=== PATIENT | male | born 1980 | race Caucasian/White ===

== ENCOUNTER 2017-01-05 08:50 | Day surgery (SDC) | payer OTHER ==
[~2017-01-05] VITALS: Ht 152.4 cm; Wt 66.0 kg
[~2017-01-05 08:50] MED LIST: 0.9% Sodium Chloride 1,000 ML IV SCH; ALBU8.5H2 INHALATION; ASPI325T32 PO; DICY10CA56 PO; FLUT9.9S NS; GUAN2TAB17 PO; IBUP400T22 PO; Lactated Ringer's 1,000 ML IV ONE; OMEP20CA11 PO; Sodium Chloride LOK Flush 10 mL Syringe IV PRN; VENL75CA95 PO; fentaNYL-PF 50 mCg/mL 2 mL Inj IVPUSH PRN
[2017-01-05] MEDS ORDERED: Lidocaine PF 1% 30 mL Inj ONE (08:51)
[2017-01-05] MEDS ORDERED: Propofol 10,000 mCg/mL 20 mL Inj ONE (08:51)
[2017-01-05 09:23] VITALS: BP 122/88; PULSE 58; RESP 16; O2SAT 97
[2017-01-05] MEDS ORDERED: Lactated Ringer's 1,000 ML IV SCH (09:43)
[2017-01-05] MEDS ORDERED: Ondansetron 2 mg/mL 2 mL Inj IVPUSH PRN (09:45)
[2017-01-05] MEDS ORDERED: Albuterol 2.5 mg/3 mL Inhalation Solution NEB PRN (09:45)
[2017-01-05] MEDS ORDERED: Atropine 0.4 mg/mL Inj IVPUSH PRN (09:45)
[2017-01-05] MEDS ORDERED: MetoCLOpramide 5 mg/mL 2 mL Inj IVPUSH PRN (09:45)
--- NOTE | 2017-01-05 09:56 | PCM.HPANE ---
Patient Data Date of Service: Jan 05, 2017 Surgeon Admitting Provider: Attending Provider:Ethan Cole MD Primary Care Physician:Alfredito Richardson MD Other Provider:Kin Bejarano Anesthesia Reason for Visit Rectal Bleed, Periumbilical Abd Pain Ht/WT & BMI Height (Feet): 5 Height (Inches): 0 Weight (Kilograms): 66 Body Mass Index 28.00 Allergies Coded Allergies: No Known Allergies (Verified Allergy, Unknown, 01/05/17) Past Anesthesia History Anesthesia History: Denies:: Anesthesia Reactions, Fam Anesthesia Reaction, Fam Malignant Hypertherm, Malignant Hyperthermia Diabetes History Hx Diabetes?: No MRSA MRSA: No Medications Hypertension Medication: No Home Meds Incl Beta Allegra: No Reported Medications Venlafaxine ER 75 Mg Cap.er.24h75 Mg PO DAILY Ref 0 01/04/17 Ibuprofen 400 Mg Njvopb546 Mg PO TID PRN For Pain Ref 0 01/04/17 Guanfacine ER 2 Mg Tab.er.24h2 Mg PO DAILY 01/04/17 Aspirin 325 Mg Rnftdk471 Mg PO DAILY #1 BOTTLE 01/04/17 Albuterol HFA (Proair HFA)8.5 Gm Hfa.aer.ad2 Puffs INHALATION Q4H #1 INHALER 01/04/17 Discontinued Reported Medications Omeprazole 20 Mg Capsule.dr20 Mg PO DAILY Ref 0 01/04/17 Fluticasone Propionate (Flonase Allergy Relief)50 Mcg/Actuation [place].susp1 [place] NS 01/04/17 Dicyclomine (Bentyl)10 Mg Ywmwoao08 Mg PO QID 01/04/17 History Hx of Heart Problems?: No Cardiovascular History: Denies:: AICD Pacemaker Valvular Heart Disease Hx of Respiratory Problem?: Yes Respiratory History: Positive for:: Asthma Hx Neurologic Problems?: No Neurological History: Denies:: CVA Hx of GI Problems?: Yes Gastrointestinal History: Positive for:: Gastroesphageal Reflux Rectal Bleeding Hx of Problems?: No HX of Peritoneal Dialysis: No Hx Musculoskeletal Problems?: No Psycho Social History: Positive for:: Anxiety Hx Depression Hx Surgeries?: Yes (ARM SURGERY) Hx Any Other Health Problems?: Yes Hx Diabetes: No Hx Alcohol Use: No Stop/Bang Treated for Sleep Apnea?: No Do You Have a CPAP Machine?: No S-Snoring: Do You Snore Loudly: No T-Tired: feel tired, fatigued: No O-Obsered: Observed not breath: No P-Blood Pressure: treated: No B- Body Mass Index > 35 kg/m2: No A- Age over 50: No N- Neck Large Circumference: No G- Gender Male: Yes JAMEY Total Score: 1 JAMEY Risk Assessment: Low Risk, <3 Yes Risk Assessment Category Category 1A: Patient has history of documented sleep apnea, and HAS NOT received any narcotic, sedative or anesthesia administration during this stay. Category 1B: Patient has history of documented sleep apnea, and HAS received any narcotic , sedative or anesthesia administration during this stay Category 2: Patient has SUSPECTED Obstructive Sleep Apnea, and HAS received any narcotic , sedative or anesthesia administration during this stay. Category 3: Patient has SUSPECTED Obstructive Sleep Apnea and HAS NOT received narcotic, sedative or anesthesia administration during this stay. Category 4: Outpatient in Procedural Areas with known sleep apnea or who screen positive for High Risk via the STOP/BANG questionnaire. Exam Exam Vital Signs Vital Signs Date Time Temp Pulse Resp B/P Pulse Ox O2 Delivery O2 Flow Rate FiO2 01/05/17 09:23 36.6 58 16 122/88 97 Room Air General Appearance: Alert, Oriented X3 HEENT/AIRWAY: MP 2 Lungs: Clear to Auscultation, Normal Air Movement Heart: Regular Rate/Rhythm, Normal S1 Meds/Labs/Diagnostics Admission Meds Current Medications Lactated Ringer's (Lr) 1,000 ml @ 10 mls/hr Q24H ONCE IV Last administered on 01/05/17t 09:36; Start 01/05/17 at 06:00; Stop 01/06/17 at 05:59 Plan Impression Patient chart reviewed, patient interviewed and anesthestic plan with risks, benefits, and alternatives discussed, and informed consent obtained. NPO Status: > 2 hours ASA Physical Status: ASA2 Plus Emergency Anesthetic Plan: MAC Bene/Risks/Altern/Consents: Yes HP Complete Prior to Induction: Yes Daniele Ryan MD Jan 05, 2017 09:43
[2017-01-05 10:20] VITALS: BP 112/82; PULSE 78; RESP 14; O2SAT 97
[2017-01-05 10:34] VITALS: BP 115/69; PULSE 76; RESP 14; O2SAT 97
--- NOTE | 2017-01-05 10:34 | PCM.ANEP1 ---
Post Anesthesia Phase 1 PACU Phase 1 Assessment Date of Service: Jan 05, 2017 Vital Signs Vital Signs Date Time Temp Pulse Resp B/P Pulse Ox O2 Delivery O2 Flow Rate FiO2 01/05/17 10:20 78 14 112/82 97 Room Air 01/05/17 09:23 36.6 58 16 122/88 97 Room Air Anesthetic Administered: MAC Level of Alertness: Awake, talking CANO's with Equal Strength: Yes Pain: No Nausea or Vomiting: No Oxygen Delivery: Room Air Lungs: Normal Air Movement Daniele Ryan MD Jan 05, 2017 10:34
--- NOTE | 2017-01-05 10:35 | PCM.ANEP2 ---
Post Anesthesia Evaluation ASA/CMS Post Anesthesia Date of Service: Jan 05, 2017 VS in Patient's Normal Range?: Yes Resp Stable; Airway Patent?: Yes CV Function & Hydration Stable: Yes Mental Status Recovered?: Yes Pain control Satisfactory?: Yes N/V Control Satisfactory?: Yes Daniele Ryan MD Jan 05, 2017 10:35
[2017-01-05 10:38] VITALS: BP 124/80; PULSE 78; RESP 14; O2SAT 97
--- NOTE | 2017-01-05 14:19 | ENDO ---
[address] [address] ENDOSCOPY PROCEDURE PATIENT: MARY MALCOLM : 1980 MR#: [id number] ADMIT: 01/05/2017 JOB ID: [id number] DATE: 01/05/2017 TYPE OF OPERATION: 1. Esophagogastroduodenoscopy with biopsy. 2. Colonoscopy with biopsy. PREOPERATIVE DIAGNOSIS(ES): Abdominal pain, gastroesophageal reflux disease and rectal bleeding. POSTOPERATIVE DIAGNOSIS(ES): 1. Mild nonerosive gastritis. 2. Small internal hemorrhoids. 3. One single diverticulum in the sigmoid colon. 4. A 2 mm polyp seen in the sigmoid colon removed by cold biopsy forceps. ANESTHESIA: Monitored anesthesia care. COMPLICATIONS: None. BLOOD LOSS: Minimal. DESCRIPTION OF PROCEDURE: After risks and benefits were explained to the patient, informed consent was obtained. After anesthesia administered, upper endoscope was then inserted into the mouth and intubated through esophagus, stomach, second portion of duodenum. Mucosa carefully examined. After the procedure was done, the scope was withdrawn and procedure terminated. Colonoscope was then inserted through the rectum to the cecum. Mucosa carefully examined. Prep of the patient was excellent. After the procedure was done, the scope was withdrawn and the procedure terminated. FINDINGS: Upon inspection of the esophagus, the esophagus was normal without masses, ulcers, or lesions. Z-line located 40 cm from incisors. Upon entering the stomach, there was mild nonerosive gastritis seen. Retroflexion was normal. No masses, ulcers, lesions were seen. Retroflexion was normal. Duodenal bulb, first and second portion normal. Biopsies of the antrum and body of the stomach and distal esophagus. Upon inspection of the anus, no masses, hemorrhoids, ulcers, fissures that were seen. Throughout the entire examination, there was a single diverticulum that were seen in the sigmoid colon. There was also a 2 mm polyp seen in the sigmoid colon removed by cold biopsy forceps. No other masses or polyps were seen. Retroflexion showed small internal hemorrhoids. IMPRESSION: 1. Small internal hemorrhoids. 2. A 2 mm sigmoid colon polyp removed by cold biopsy forceps. 3. Sigmoid diverticulum in the sigmoid colon. 4. Mild nonerosive gastritis. RECOMMENDATIONS: 1. Await pathology results. 2. Followup in GI clinic as needed. 3. High fiber diet.
--- NOTE | 2017-01-09 15:11 | PATH ---
SURGICAL PATHOLOGY Attending Physician:Ethan Cole MD CASE STATUS: Signed Out PATIENT NAME: MARY MALCOLM PID: [id number] : 1980 DATE COLLECTED:01/05/2017 16:51 SPECIMEN: 1: Stomach, Antrum, Biopsy 2: Gastric, Biopsy 3: Esophagus, Biopsy 4: Colon, Biopsy CLINICAL HISTORY: 1). GASTRIC ANTRUM 2). GASTRIC BODY 3). DISTAL ESOPHAGUS 4). SIGMOID POLYP FINAL DIAGNOSIS: 1.GASTRIC ANTRUM BIOPSY: FRAGMENT OF GASTRIC ANTRAL MUCOSA NEGATIVE FOR SIGNIFICANT INFLAMMATION. Negative for evidence of Helicobacter. Negative for intestinal metaplasia. Negative for dysplasia and malignancy. 2.GASTRIC BODY BIOPSY: FRAGMENTS OF GASTRIC FUNDIC MUCOSA NEGATIVE FOR SIGNIFICANT INFLAMMATION. Negative for evidence of Helicobacter. Negative for intestinal metaplasia. Negative for dysplasia and malignancy. 3.BIOPSIES, DISTAL ESOPHAGUS: FRAGMENTS OF SQUAMOUS EPITHELIUM, NEGATIVE FOR SIGNIFICANT ATYPIA. NO GASTRIC-TYPE EPITHELIUM PRESENT. Eosinophils are not increased. 4.SIGMOID COLON POLYP: POLYPOID-SHAPED FRAGMENT OF COLON MUCOSA CONSISTENT WITH MUCOSAL POLYPOID REDUNDANCY. ICD10 CODE K63.5 GROSS DESCRIPTION: The specimen is received in four formalin filled containers labeled with the patient's name. 1). The specimen is sublabeled ""gastric antrum" and consists of 2 portions of tissue which aggregate to 0.4 x 0.4 x 0.3 CM. The specimen is entirely submitted in cassette 1A. 2). The specimen is sublabeled "gastric body" and consists of a 0.5 x 0.3 x 0.2 CM portion of tissue which is entirely submitted in cassette 2A. 3). The specimen is sublabeled "distal esophagus" and consists of a 0.3 x 0.3 x 0.2 CM portion of tissue which is entirely submitted in cassette 3A. 4). The specimen is sublabeled "sigmoid polyp" and consists of 2 portions of tissue which aggregate to 0.3 x 0.2 x 0.2 CM. The specimen is entirely submitted in cassette 4A. 01/05/2017 DAC MICRO DESCRIPTION: See diagnosis. ICD-9 CODES: CPT CODES: 1: 92877 2: 98904 3: 95257 4: 77402 Electronically Signed Out Alfredo Kevin MD [facility] [address], [place] [address] Technical component performed at [facility], [address], [place], [address]
== END 2017-01-05 23:59 | disposition home or self-care (01) ==
LOC: END 08:50
PROVIDERS: ATTEND Internal Medicine Gastroenterology
DX: K62.5 Hemorrhage of anus and rectum (principal); K63.5 Polyp of colon; K64.8 Other hemorrhoids; K57.30 Diverticulosis of large intestine without perforation or abscess without bleeding; K21.9 Gastro-esophageal reflux disease without esophagitis; K29.50 Unspecified chronic gastritis without bleeding; R10.33 Periumbilical pain; F17.210 Nicotine dependence, cigarettes, uncomplicated; Z79.82 Long term (current) use of aspirin; Z79.899 Other long term (current) drug therapy
CPT/HCPCS: 43239; 45380; J7120